=== PATIENT | male | born 1975 | race Caucasian/White ===

== ENCOUNTER 2019-01-29 10:53 | Emergency (ER) | payer OTHER ==
[2019-01-29] MEDS ORDERED: fentaNYL CITR 100 MCG/2 ML AMP ONE ×2 (11:05→11:25)
[2019-01-29] MEDS ORDERED: DIPHTH/TETANUS/ACEL. PERTUSSIS IM ONE (11:10)
[2019-01-29 11:21] LABS: PLATELET COUNT, AUTOMATED 339 K/uL (150-450)
[2019-01-29] MEDS ORDERED: IOPAMIDOL 76% 100 ML INFUS BTL 100 ML ONE (11:21)
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
[2019-01-29 11:29] LABS: INR 0.97
[2019-01-29] MEDS: HYDROMORPHONE HCL 1 MG/ML SYRINGE ONE (11:48)
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
[2019-01-29] MEDS ORDERED: HYDROMORPHONE HCL 1 MG/ML SYRINGE IVP ONE ×3 (13:15→14:40)
[2019-01-29] MEDS ORDERED: fentaNYL CITR 100 MCG/2 ML AMP IVP ONE ×2 (13:25)
[2019-01-29 14:00] VITALS: BP 114/64
[2019-01-29] MEDS ORDERED: HYDROMORPHONE HCL 1 MG/ML SYRINGE ONE (14:00)
== END 2019-01-29 14:20 | disposition short-term general hospital (02) ==
LOC: ER 11:50 → MERGE 11:50 → ER 14:20
DX: S72.401A Unspecified fracture of lower end of right femur, initial encounter for closed fracture (principal)
CPT/HCPCS: 12011; 70450; 70486; 71045; 71260; 72125; 72170; 73552; 74177; 80320; 83605; 83690; 85025; 85610; 85730; 90471; 90715; 96374; 96375; 96376; 99285; J1170; J3010; Q9967; 82040; 82247; 82310; 82374; 82435; 82565; 82947; 84075; 84132; 84155; 84295; 84450; 84460; 84520; C1758

== ENCOUNTER → 2019-01-29 | Outpatient (CLI) | payer OTHER ==
[~2019-01-29] MED LIST: APIX5TAB PO; CEPH-13 PO; PER PO; PRED20TA6 PO; RIV10 PO
== END ==
LOC: MERGE 10:33 → AMB 10:33
PROVIDERS: ATTEND Nurse Practitioner
DX: M79.604 Pain in right leg (principal); M21.951 Unspecified acquired deformity of right thigh; V29.49XA Motorcycle driver injured in collision with other motor vehicles in traffic accident, initial encounter
CPT/HCPCS: A0425; A0427

== ENCOUNTER → 2019-01-29 | Outpatient (CLI) | payer OTHER | LOC: AMB 13:53 → MERGE 13:53 | PROVIDERS: ATTEND Nurse Practitioner | DX: S72.91XA Unspecified fracture of right femur, initial encounter for closed fracture (principal); V29.49XA Motorcycle driver injured in collision with other motor vehicles in traffic accident, initial encounter | CPT/HCPCS: A0425; A0426 ==